=== PATIENT | male | born 1930 | race Caucasian/White ===

== ENCOUNTER 2019-06-03 15:31 | Emergency (ER) | payer OTHER, BC ==
[2019-06-03] MEDS ORDERED: NA CHLORIDE 0.9% 500 ML ONE (17:02)
[2019-06-03] MEDS ORDERED: MEPERIDINE HCL 25 MG/0.5 ML ONE (17:02)
[2019-06-03 17:06] LABS: Absolute Lymphocytes (CBC) 1.2 K/uL (0.7-4.9); Basophils % 0.8 % (0-1.3); Hematocrit 38.2 % (39.6-49.0); Lymphocytes % 12.4 % (15.3-44.8)
[2019-06-03 17:32] LABS: Albumin 3.6 g/dL (3.4-5.0); Bilirubin Direct 0.1 mg/dL (0-0.2); Bilirubin Total 0.3 mg/dL (0.2-1.0); Potassium 4.3 mmol/L (3.5-5.1); Protein, Total 7.8 g/dL (6.4-8.2)
--- NOTE | 2019-06-03 18:37 | RAD REPORT ---
EXAM DESCRIPTION: CT - Abdomen Pelvis W Contrast - 06/03/2019 6:18 pm CLINICAL HISTORY: Abdominal pain . COMPARISON: none. TECHNIQUE: Computed axial tomography of the abdomen pelvis was obtained. 100 cc Isovue-300 was admin istered intravenously. Oral contrast was not requested which limits evaluation of bowel. All CT scans are performed using dose optimization technique as appropriate and may include automated exposure control or mA/KV adjustment according to patient size. FINDINGS: The liver, spleen, pancreas, adrenal appear unremarkable. Small renal cysts There is no evidence of diverticulitis. The wall of the rectum appears mildly thickened Gallstones. Gallbladder wall is not thickened IMPRESSION: Apparent mild thickening of the wall of the rectum may be secondary to incomplete disten tion or pathology such as inflammation or mass Cholelithiasis without evidence cholecystitis
[2019-06-03] MEDS ORDERED: ONDANSETRON 4 MG/2 ML VIAL ONE (19:43)
[2019-06-03] MEDS ORDERED: MORPHINE 4 MG/ML SYR ONE (19:43)
--- NOTE | 2019-06-03 19:53 | RAD REPORT ---
EXAM DESCRIPTION: US - Abdomen Exam Limited - 06/03/2019 7:17 pm CLINICAL HISTORY: Abdominal pain. COMPARISON: None. FINDINGS: The gallbladder wall is not thickened. Multiple small gallstones The biliary tree is normal caliber. IMPRESSION: Cholelithiasis without evidence of cholecystitis
--- NOTE | 2019-06-03 20:31 | EDPHYS ---
Physician Documentation [facility] Name: Ciaran Pickard Age: 88 yrs Sex: Male : 1930 Arrival Date: 06/03/2019 Time: 15:34 Bed 13 Private MD: Claudia Angel ED Physician Ignacio Moran HPI: 06/03 18:49 This 88 yrs old Male presents to ER via Ambulatory with complaints of rn Abdominal Swelling, Abdominal Pain, High Blood Pressure. 18:49 The patient presents with abdominal pain in the upper abdomen. Onset: The rn symptoms/episode began/occurred this morning. The symptoms do not radiate. Associated signs and symptoms: none. Pertinent negatives: nausea and vomiting, anorexia, blood in stools, chest pain, constipation, diarrhea, dysuria, fever, headache, hematuria, nausea, palpitations, shortness of breath, vomiting, vomiting blood. Modifying factors: The symptoms are alleviated by nothing, the symptoms are aggravated by touching the area. Severity of pain: At its worst the pain was moderate in the emergency department the pain has improved. The patient has not experienced similar symptoms in the past. The patient has not recently seen a physician. Historical: - Allergies: 15:54 PENICILLINS; la1 - Home Meds: 15:54 Xarelto 20 mg oral tab 1 tab once daily [Active]; Multaq 400 mg oral tab 1 tab 2 times la1 per day [Active]; ramipril 5 mg Oral cap 1 cap 2 times per day [Active]; - PMHx: 15:54 Hypertension; Atrial Fib; la1 - Immunization history:: Adult Immunizations up to date. - Social history:: Smoking status: Patient/guardian denies using tobacco. - Ebola Screening: : No symptoms or risks identified at this time. - Family history:: not pertinent. - Hospitalizations: : No recent hospitalization is reported. ROS: 18:49 Constitutional: Negative for fever, chills, and weight loss, Eyes: Negative for injury, rn pain, redness, and discharge, ENT: Negative for injury, pain, and discharge, Cardiovascular: Negative for chest pain, palpitations, and edema, Respiratory: Negative for shortness of breath, cough, wheezing, and pleuritic chest pain, Abdomen/GI: + upper abd pain, negative for nausea/vomiting/diarrhea/constipation/blood in stool MS/Extremity: Negative for injury and deformity, Skin: Negative for injury, rash, and discoloration, Neuro: Negative for headache, weakness, numbness, tingling, and seizure. Exam: 18:49 Constitutional: This is a well developed, well nourished patient who is awake, alert, rn and in no acute distress. Head/Face: Normocephalic, atraumatic. ENT: MMM Cardiovascular: Regular rate and rhythm. No pulse deficits. Respiratory: No increased work of breathing, no retractions or nasal flaring. Abdomen/GI: soft, mild upper abd tenderness, no rebound, neg miller Skin: Warm, dry with normal turgor. Normal color with no rashes, no lesions, and no evidence of cellulitis. MS/ Extremity: Pulses equal, no cyanosis. Neurovascular intact. Full, normal range of motion. Equal circumference. Neuro: Awake and alert, GCS 15, oriented to person, place, time, and situation. Cranial nerves II-XII grossly intact. Motor strength 5/5 in all extremities. Sensory grossly intact. Vital Signs: 15:54 BP 204 / 91; Pulse 68; Resp 16; Temp 97.1; Pulse Ox 98% on R/A; Weight 95.25 kg; Height la1 6 ft. 0 in. (182.88 cm); 16:30 BP 203 / 88; Pulse 65; Resp 16 S; Pulse Ox 100% on R/A; Pain 9/10; ph 17:12 BP 190 / 83; Pulse 60; Resp 16; Pulse Ox 94% ; Pain 1/10; ph 18:01 BP 178 / 91; Pulse 55; Resp 16 S; Pulse Ox 97% on R/A; Pain 1/10; jl7 19:45 BP 200 / 90; Pulse 58; Resp 19; Temp 97.5; Pulse Ox 99% ; Pain 8/10; rr5 20:30 BP 195 / 80; Pulse 52; Resp 17; Pulse Ox 98% on R/A; Pain 5/10; rr5 21:45 BP 175 / 85; Pulse 56; Resp 17; Temp 97.2; Pulse Ox 99% ; Pain 2/10; rr5 15:54 Body Mass Index 28.48 (95.25 kg, 182.88 cm) la MDM: 15:58 Patient medically screened. rn 20:29 Data reviewed: vital signs. Data interpreted: Pulse oximetry: on room air is 99 %. pm1 Interpretation: normal. Counseling: I had a detailed discussion with the patient and/or guardian regarding: the historical points, exam findings, and any diagnostic results supporting the discharge/admit diagnosis, lab results, radiology results, the need for outpatient follow up, for definitive care, a general surgeon, to return to the emergency department if symptoms worsen or persist or if there are any questions or concerns that arise at home. 20:42 Physician consultation: Marc Olivo MD regarding patient's condition, outpatient pm1 follow-up, in 2-3 days. 06/03 16:05 Order name: Basic Metabolic Panel; Complete Time: 17:43 rn 06/03 16:05 Order name: CBC with Diff; Complete Time: 17:43 rn 06/03 16:05 Order name: Creatinine for Radiology; Complete Time: 17:43 rn 06/03 16:05 Order name: Hepatic Function; Complete Time: 17:43 rn 06/03 16:05 Order name: Lipase; Complete Time: 17:43 rn 06/03 16:05 Order name: IV Saline Lock; Complete Time: 16:56 rn 06/03 16:05 Order name: Labs collected and sent; Complete Time: 16:56 rn 06/03 16:16 Order name: Abdomen ; Complete Time: 20:15 EDMS 06/03 18:36 Order name: US Abdomen Limited; Complete Time: 20:33 rn Administered Medications: 17:00 Drug: NS 0.9% 500 ml Route: IV; Rate: bolus; Site: left antecubital; ph 17:30 Follow up: IV Status: Completed infusion; IV Intake: 500ml jl7 17:05 Drug: Demerol 25 mg Route: IVP; Site: left antecubital; ph 17:30 Follow up: Response: No adverse reaction; Marked relief of symptoms; Pain is decreased jl7 19:52 Drug: morphine 4 mg {Note: rass 0.} Route: IVP; Site: left antecubital; rr5 20:50 Follow up: Response: No adverse reaction; RASS: Alert and Calm (0) rr5 06/04 02:52 Not Given (Patient Refused): Zofran 4 mg IVP once; over 2 minutes rr5 Disposition: 06/03/19 20:30 Discharged to Home. Impression: Cholelithiasis. - Condition is Stable. - Discharge Instructions: Cholelithiasis. - Prescriptions for Bentyl 20 mg Oral Tablet - take 1 tablet by ORAL route every 6 hours As needed; 20 tablet. Zofran 4 mg Oral Tablet - take 1 tablet by ORAL route every 12 hours As needed; 20 tablet. Tramadol 50 mg Oral Tablet - take 1 tablet by ORAL route every 8 hours as needed; 12 tablet. - Medication Reconciliation Form, Thank You Letter, Antibiotic Education, Prescription Opioid Use form. - Follow up: Emergency Department; When: As needed; Reason: Worsening of condition. Follow up: Private Physician; When: 2 - 3 days; Reason: Recheck today's complaints, Continuance of care, Re-evaluation by your physician. Follow up: Marc Olivo MD; When: 2 - 3 days; Reason: Recheck today's complaints, Continuance of care, Re-evaluation by your physician. - Problem is new. - Symptoms have improved. Addendum: 06/06/2019 07:02 Co-signature as Attending Physician, Ignacio Moran MD. r n Signatures: Dispatcher [employer] [facility] Ignacio Moran MD MD rn Attema, Lee, RN RN la1 Bety Noel RN RN Shashi Ye, BETITO BLENDER LABORER pm1 Galindo Zapata RN RN rr5 Gypsy Borrego RN jl7 Corrections: (The following items were deleted from the chart) 06/03 16:16 16:06 Abdomen W/ Con+CT.RAD.BRZ ordered. [facility] 21:47 20:30 06/03/2019 20:30 Discharged to Home. Impression: Cholelithiasis. Condition is rr5 Stable. Forms are Medication Reconciliation Form, Thank You Letter, Antibiotic Education, Prescription Opioid Use. Follow up: Emergency Department; When: As needed; Reason: Worsening of condition. Follow up: Private Physician; When: 2 - 3 days; Reason: Recheck today's complaints, Continuance of care, Re-evaluation by your physician. Follow up: Marc Olivo; When: 2 - 3 days; Reason: Recheck today's complaints, Continuance of care, Re-evaluation by your physician. Problem is new. Symptoms have improved. pm1
--- NOTE | 2019-06-03 20:31 | ER ---
Nurse's Notes [facility] Name: Ciaran Pickard Age: 88 yrs Sex: Male : 1930 Arrival Date: 06/03/2019 Time: 15:34 Bed 13 Private MD: Claudia Angel Diagnosis: Cholelithiasis Presentation: 06/03 15:51 Presenting complaint: Patient states: I have been having abd pain since this morning la1 and my BP just keeps getting higher and higher. Transition of care: patient was not received from another setting of care. Onset of symptoms was June 03, 2019. Risk Assessment: Do you want to hurt yourself or someone else? Patient reports no desire to harm self or others. Initial Sepsis Screen: Does the patient meet any 2 criteria? No. Patient's initial sepsis screen is negative. Does the patient have a suspected source of infection? No. Patient's initial sepsis screen is negative. Care prior to arrival: None. 15:51 Method Of Arrival: Ambulatory la1 15:51 Acuity: MARY 2 la1 Historical: - Allergies: 15:54 PENICILLINS; la1 - Home Meds: 15:54 Xarelto 20 mg oral tab 1 tab once daily [Active]; Multaq 400 mg oral tab 1 tab 2 times la1 per day [Active]; ramipril 5 mg Oral cap 1 cap 2 times per day [Active]; - PMHx: 15:54 Hypertension; Atrial Fib; la1 - Immunization history:: Adult Immunizations up to date. - Social history:: Smoking status: Patient/guardian denies using tobacco. - Ebola Screening: : No symptoms or risks identified at this time. - Family history:: not pertinent. - Hospitalizations: : No recent hospitalization is reported. Screenin:12 Abuse screen: Denies threats or abuse. Denies injuries from another. Nutritional ph screening: No deficits noted. Tuberculosis screening: No symptoms or risk factors identified. Fall Risk IV access (20 points). Total Tucker Fall Scale indicates No Risk (0-24 pts). Assessment: 16:30 General: Appears in no apparent distress. uncomfortable, Behavior is calm, cooperative, ph appropriate for age. Pain: Complains of pain in abdomen diffusely Pain currently is 9 out of 10 on a pain scale. Quality of pain is described as pressure, Pain began This morning Is continuous. Neuro: Level of Consciousness is awake, alert, obeys commands, Oriented to person, place, time, situation. Cardiovascular: Patient's skin is warm and dry. Respiratory: Airway is patent Respiratory effort is even, unlabored, Respiratory pattern is regular, symmetrical. GI: Abdomen is round non-distended, Bowel sounds present X 4 quads. Abd is soft and non tender X 4 quads. Derm: Skin is pink, warm \\T\\ dry. Musculoskeletal: No signs and/or symptoms reported regarding the musculoskeletal system. 18:02 Reassessment: Pt requesting to take his nightly home medications, ERD notified and jl7 orders he can take his Multaq 400 but hold the Xarelto until results are back. 19:45 Reassessment: complaining of abdominal pain pain score 8/10. ED provider informed with rr5 order made and carried out. 19:52 Reassessment: patient refused for zofran medication. "I am not feeling nauseated for rr5 now." as verbalized by the patient. 20:30 Reassessment: Patient appears in no apparent distress at this time. Patient is alert, rr5 oriented x 3, equal unlabored respirations, skin warm/dry/pink. chatting with his flatwork presser at bedside. Patient states symptoms have improved. 21:06 Reassessment: for discharge ED provider informed dr. baugh for the follow up, rr5 patient and relatives aware. 21:35 Reassessment: Patient appears in no apparent distress at this time. Patient is alert, rr5 oriented x 3, equal unlabored respirations, skin warm/dry/pink. discharge instruction given and explained to flatwork presser without complaints made. Vital Signs: 15:54 BP 204 / 91; Pulse 68; Resp 16; Temp 97.1; Pulse Ox 98% on R/A; Weight 95.25 kg; Height la1 6 ft. 0 in. (182.88 cm); 16:30 BP 203 / 88; Pulse 65; Resp 16 S; Pulse Ox 100% on R/A; Pain 9/10; ph 17:12 BP 190 / 83; Pulse 60; Resp 16; Pulse Ox 94% ; Pain 1/10; ph 18:01 BP 178 / 91; Pulse 55; Resp 16 S; Pulse Ox 97% on R/A; Pain 1/10; jl7 19:45 BP 200 / 90; Pulse 58; Resp 19; Temp 97.5; Pulse Ox 99% ; Pain 8/10; rr5 20:30 BP 195 / 80; Pulse 52; Resp 17; Pulse Ox 98% on R/A; Pain 5/10; rr5 21:45 BP 175 / 85; Pulse 56; Resp 17; Temp 97.2; Pulse Ox 99% ; Pain 2/10; rr5 15:54 Body Mass Index 28.48 (95.25 kg, 182.88 cm) la1 ED Course: 15:34 Patient arrived in ED. mr 15:35 Claudia Angel MD is Private Physician. mr 15:51 Arm band placed on left wrist. la1 15:52 Triage completed. la1 15:55 Bety Noel RN is Primary Nurse. ph 15:58 Ignacio Moran MD is Attending Physician. rn 17:00 Initial lab(s) drawn, by nc, sent to lab. Inserted saline lock: 22 gauge in left ph antecubital area, using aseptic technique. Blood collected. 17:12 Patient has correct armband on for positive identification. Placed in gown. Bed in low ph position. Call light in reach. Side rails up X 1. sand blaster on. Pulse ox on. NIBP on. Warm blanket given. 17:39 Primary Nurse role handed off by Bety Noel RN jl7 17:39 Gypsy Borrego RN is Primary Nurse. jl7 18:22 Abdomen In Process Unspecified. EDMS 18:46 Shashi Moreau NP is PHCP. pm1 19:32 US Abdomen Limited In Process Unspecified. EDMS 20:30 Marc Baugh MD is Referral Physician. pm1 21:45 No provider procedures requiring assistance completed. rr5 21:45 Patient did not have IV access during this emergency room visit. rr5 Administered Medications: 17:00 Drug: NS 0.9% 500 ml Route: IV; Rate: bolus; Site: left antecubital; ph 17:30 Follow up: IV Status: Completed infusion; IV Intake: 500ml jl7 17:05 Drug: Demerol 25 mg Route: IVP; Site: left antecubital; ph 17:30 Follow up: Response: No adverse reaction; Marked relief of symptoms; Pain is decreased jl7 19:52 Drug: morphine 4 mg {Note: rass 0.} Route: IVP; Site: left antecubital; rr5 20:50 Follow up: Response: No adverse reaction; RASS: Alert and Calm (0) rr5 06/04 02:52 Not Given (Patient Refused): Zofran 4 mg IVP once; over 2 minutes rr5 Intake: 06/03 17:30 IV: 500ml; Total: 500ml. jl7 Outcome: 20:30 Discharge ordered by . pm1 21:45 Discharged to home ambulatory, with family. rr5 21:45 Condition: stable 21:45 Discharge instructions given to patient, family, Instructed on discharge instructions, follow up and referral plans. medication usage, Demonstrated understanding of instructions, follow-up care, medications, Prescriptions given X 3. 21:47 Patient left the ED. rr5 Signatures: Dispatcher [employer] Clary Jimenez LuisaIgnacio MD MD rn Attema, Lee, RN RN la1 Bety Noel RN RN ph Marinas, Patrick, BETITO FIXED INCOME DIRECTOR pm1 Gypsy Borrego RN RN jl7 Galindo Zapata RN RN rr5 Corrections: (The following items were deleted from the chart) 06/04 02:39 06/03 21:06 Reassessment: for discharge awaiting for dr. baugh to speak to them in rr5 room. rr5
[2019-06-03 22:06] VITALS: BP 200/90; TEMP 97.5; O2SAT 99
== END 2019-06-03 21:47 | disposition home or self-care (01) ==
LOC: ER 15:31
DX: K80.20 Calculus of gallbladder without cholecystitis without obstruction (principal); I10 Essential (primary) hypertension; I48.91 Unspecified atrial fibrillation; Z79.01 Long term (current) use of anticoagulants; Z88.0 Allergy status to penicillin
CPT/HCPCS: 85025; 80048; 36415; 80076; 83690; 74177; 76705; Q9967; J2175; 96374; 96375; 99284; J2405

== ENCOUNTER 2019-06-05 01:46 | Inpatient (IN) | payer OTHER, BC ==
--- NOTE | 2019-06-05 03:00 | EDPHYS ---
Physician Documentation [facility] Name: Ciaran Pickard Age: 88 yrs Sex: Male : 1930 Arrival Date: 06/05/2019 Time: 01:51 Bed 15 Private MD: ED Physician Mahamed Andrade HPI: 06/05 02:53 This 88 yrs old Male presents to ER via EMS with complaints of abdominal melissa pain, pleursy and known cholelithiasis. 02:53 The patient has shortness of breath at rest. Onset: The symptoms/episode began/occurred melissa 4 day(s) ago. Duration: The symptoms are continuous, and are steadily getting worse. The patient's shortness of breath has no apparent modifying factors. The patient or guardian reports chest pain that is located primarily in the anterior chest wall, diaphragm. Onset: 3 day(s) ago. The patient presents with abdominal pain in the epigastric area, in the upper abdomen, abdominal distention in the epigastric area, in the upper abdomen. Onset: The symptoms/episode began/occurred 3 day(s) ago. The pain does not radiate. Associated signs and symptoms: Pertinent positives: chest pain. Severity of symptoms: At their worst the symptoms were mild moderate in the emergency department the symptoms are unchanged. Historical: - Allergies: 01:45 PENICILLINS; jb4 - Home Meds: 01:45 Multaq 400 mg Oral tab 1 tab 2 times per day [Active]; ramipril 5 mg Oral cap 1 cap 2 jb4 times per day [Active]; Xarelto 20 mg Oral tab 1 tab once daily [Active]; 01:45 Bentyl Oral [Active]; Tramadol Oral [Active]; jb4 - PMHx: 01:45 Atrial Fib; Hypertension; jb4 - Immunization history:: Adult Immunizations up to date. - Social history:: Smoking status: Patient/guardian denies using tobacco. - Ebola Screening: : No symptoms or risks identified at this time. - Family history:: not pertinent. ROS: 02:53 Constitutional: Negative for fever, chills, and weight loss, Eyes: Negative for injury, melissa pain, redness, and discharge, ENT: Negative for injury, pain, and discharge, Neck: Negative for injury, pain, and swelling, Cardiovascular: Negative for chest pain, palpitations, and edema, Back: Negative for injury and pain, : Negative for injury, bleeding, discharge, and swelling, MS/Extremity: Negative for injury and deformity, Skin: Negative for injury, rash, and discoloration, Neuro: Negative for headache, weakness, numbness, tingling, and seizure, Psych: Negative for depression, anxiety, suicide ideation, homicidal ideation, and hallucinations, Allergy/Immunology: Negative for hives, rash, and allergies, Endocrine: Negative for neck swelling, polydipsia, polyuria, polyphagia, and marked weight changes, Hematologic/Lymphatic: Negative for swollen nodes, abnormal bleeding, and unusual bruising. 02:53 Respiratory: Positive for cough. 02:53 Abdomen/GI: Positive for abdominal pain, abdominal cramps, abdominal distension, of the epigastric area, right upper quadrant and left upper quadrant. Exam: 02:53 Constitutional: This is a well developed, well nourished patient who is awake, alert, melissa and in no acute distress. Head/Face: Normocephalic, atraumatic. Eyes: Pupils equal round and reactive to light, extra-ocular motions intact. Lids and lashes normal. Conjunctiva and sclera are non-icteric and not injected. Cornea within normal limits. Periorbital areas with no swelling, redness, or edema. ENT: Nares patent. No nasal discharge, no septal abnormalities noted. Tympanic membranes are normal and external auditory canals are clear. Oropharynx with no redness, swelling, or masses, exudates, or evidence of obstruction, uvula midline. Mucous membranes moist. Neck: Trachea midline, no thyromegaly or masses palpated, and no cervical lymphadenopathy. Supple, full range of motion without nuchal rigidity, or vertebral point tenderness. No Meningismus. Chest/axilla: Normal chest wall appearance and motion. Nontender with no deformity. No lesions are appreciated. Cardiovascular: Regular rate and rhythm with a normal S1 and S2. No gallops, murmurs, or rubs. Normal PMI, no JVD. No pulse deficits. Respiratory: Lungs have equal breath sounds bilaterally, clear to auscultation and percussion. No rales, rhonchi or wheezes noted. No increased work of breathing, no retractions or nasal flaring. Back: No spinal tenderness. No costovertebral tenderness. Full range of motion. Male : Normal genitalia with no discharge or lesions. Skin: Warm, dry with normal turgor. Normal color with no rashes, no lesions, and no evidence of cellulitis. MS/ Extremity: Pulses equal, no cyanosis. Neurovascular intact. Full, normal range of motion. Neuro: Awake and alert, GCS 15, oriented to person, place, time, and situation. Cranial nerves II-XII grossly intact. Motor strength 5/5 in all extremities. Sensory grossly intact. Cerebellar exam normal. Normal gait. Psych: Awake, alert, with orientation to person, place and time. Behavior, mood, and affect are within normal limits. 02:53 Abdomen/GI: Inspection: abdomen appears normal, Bowel sounds: normal, Palpation: mild abdominal tenderness, moderate abdominal tenderness, in the epigastric area, right upper quadrant and left upper quadrant, Liver: no appreciated palpable abnormalities, Hernia: not appreciated. Vital Signs: 01:45 BP 127 / 70; Pulse 70; Resp 16; Temp 99.8(O); Pulse Ox 93% on R/A; Weight 95.25 kg (R); jb4 Height 5 ft. 11 in. (180.34 cm) (R); Pain 10/10; 03:00 BP 120 / 56; Pulse 65; Resp 16; Pulse Ox 93% on R/A; jb4 04:07 BP 125 / 68; Pulse 67; Resp 16; Pulse Ox 93% on R/A; jb4 04:30 BP 115 / 54; Pulse 67; Resp 16; Pulse Ox 93% on R/A; jb4 06:22 BP 102 / 68; Pulse 76; Resp 18 S; Pulse Ox 94% on R/A; Pain 0/10; jd3 01:45 Body Mass Index 29.29 (95.25 kg, 180.34 cm) jb4 MDM: 02:10 Patient medically screened. [facility] 02:57 Data reviewed: vital signs, nurses notes, lab test result(s), EKG, radiologic studies, [facility] CT scan, plain films. 06/05 02:52 Order name: Basic Metabolic Panel; Complete Time: 06:13 [facility] 06/05 02:52 Order name: CBC with Diff; Complete Time: 06:13 [facility] 06/05 02:52 Order name: LFT's; Complete Time: 06:13 [facility] 06/05 02:52 Order name: Magnesium; Complete Time: 06:13 [facility] 06/05 02:52 Order name: NT PRO-BNP; Complete Time: 06:13 [facility] 06/05 02:52 Order name: PT-INR; Complete Time: 04:23 [facility] 06/05 02:52 Order name: Troponin (emerg Dept Use Only); Complete Time: 06:13 [facility] 06/05 02:52 Order name: XRAY Chest (1 view) [facility] 06/05 02:52 Order name: Lipase; Complete Time: 06:13 [facility] 06/05 03:51 Order name: CBC with Automated Diff [facility] 06/05 03:51 Order name: CBC with Automated Diff [facility] 06/05 03:51 Order name: Comprehensive Metabolic Panel [facility] 06/05 03:51 Order name: Comprehensive Metabolic Panel [facility] 06/05 04:21 Order name: Manual Differential; Complete Time: 06:13 [facility] 06/05 02:52 Order name: EKG; Complete Time: 02:54 [facility] 06/05 02:52 Order name: Cardiac monitoring; Complete Time: 03:51 [facility] 06/05 02:52 Order name: EKG - Nurse/Tech; Complete Time: 03:26 [facility] 06/05 02:52 Order name: IV Saline Lock; Complete Time: 03:51 [facility] 06/05 02:52 Order name: Labs collected and sent; Complete Time: 03:51 [facility] 06/05 02:52 Order name: O2 Per Protocol; Complete Time: 03:51 [facility] 06/05 02:52 Order name: CT Aorta for Dissection [facility] 06/05 03:50 Order name: CONS Pharmacy Consult [facility] 06/05 03:51 Order name: CONS Physician Consult [facility] 06/05 03:51 Order name: NPO [facility] 06/05 02:52 Order name: O2 Sat Monitoring; Complete Time: 03:51 [facility] Administered Medications: 04:12 Drug: Zofran 4 mg Route: IVP; Site: right antecubital; jb4 05:12 Follow up: Response: No adverse reaction jd3 04:14 Drug: ProTONIX 40 mg Route: IVP; Site: right antecubital; jb4 05:15 Follow up: Response: No adverse reaction jd3 04:15 Drug: morphine 2 mg {Note: Rass score 0.} Route: IVP; Site: right antecubital; jb4 05:15 Follow up: Response: No adverse reaction; RASS: Alert and Calm (0) jd3 04:17 Drug: Rocephin 1 grams Route: IV; Rate: per protocol; Site: right antecubital; jb4 04:20 Follow up: Response: No adverse reaction; IV Status: Completed infusion; IV Intake: [id number] 04:20 Drug: Flagyl 500 mg Volume: 100 ml; Route: IVPB; Rate: 200 ml/hr; Infused Over: 30 jb4 mins; Site: right antecubital; 06:04 Follow up: Response: No adverse reaction; IV Status: Completed infusion jd3 06:14 Drug: Rocephin - (cefTRIAXone) 1 grams Route: IVPB; Infused Over: 30 mins; Site: right jd3 antecubital; 06:17 Follow up: Response: No adverse reaction; IV Status: Completed infusion jd3 Disposition: 06/05/19 02:59 Hospitalization ordered by Reece Velazquez for Inpatient Admission. Preliminary diagnosis are Abdominal tenderness, Cholelithiasis, Atrial fibrillation and flutter, Left sided colitis, Anemia, unspecified, Elevated white blood cell count, Cholecystitis. - Bed requested for Telemetry/MedSurg (Inpatient). - Status is Inpatient Admission. jd3 - Condition is Fair. - Problem is new. - Symptoms have improved. UTI on Admission? No Signatures: Dispatcher [employer] EDMahamed Steven MD MD cha Page, Corey, PA PA cp Bryson, James, RN RN jb4 Nguyen, [facility] Hari Singh RN RN jd3 Corrections: (The following items were deleted from the chart) 04:22 02:59 Hospitalization Ordered by Reece Velazquez MD for Inpatient Admission. Preliminary nv diagnosis is Abdominal tenderness; Cholelithiasis; Atrial fibrillation and flutter; Left sided colitis. Bed requested for Telemetry/MedSurg (Inpatient). Status is Inpatient Admission. Condition is Fair. Problem is new. Symptoms have improved. UTI on Admission? No. [facility] 04:23 04:22 06/05/2019 02:59 Hospitalization Ordered by Reece Velazquez MD for Inpatient melissa Admission. Preliminary diagnosis is Abdominal tenderness; Cholelithiasis; Atrial fibrillation and flutter; Left sided colitis. Bed requested for Telemetry/MedSurg (Inpatient). Status is Inpatient Admission. Condition is Fair. Problem is new. Symptoms have improved. UTI on Admission? No. mt 05:58 04:23 06/05/2019 02:59 Hospitalization Ordered by Reece Velazquez MD for Inpatient melissa Admission. Preliminary diagnosis is Abdominal tenderness; Cholelithiasis; Atrial fibrillation and flutter; Left sided colitis; Anemia, unspecified; Elevated white blood cell count. Bed requested for Telemetry/MedSurg (Inpatient). Status is Inpatient Admission. Condition is Fair. Problem is new. Symptoms have improved. UTI on Admission? No. melissa 06:34 05:58 06/05/2019 02:59 Hospitalization Ordered by Reece Velazquez MD for Inpatient jd3 Admission. Preliminary diagnosis is Abdominal tenderness; Cholelithiasis; Atrial fibrillation and flutter; Left sided colitis; Anemia, unspecified; Elevated white blood cell count; Cholecystitis. Bed requested for Telemetry/MedSurg (Inpatient). Status is Inpatient Admission. Condition is Fair. Problem is new. Symptoms have improved. UTI on Admission? No. melissa
--- NOTE | 2019-06-05 03:00 | ER ---
Nurse's Notes [facility] Name: Ciaran Pickard Age: 88 yrs Sex: Male : 1930 Arrival Date: 06/05/2019 Time: 01:51 Bed 15 Private MD: Diagnosis: Abdominal tenderness;Cholelithiasis;Atrial fibrillation and flutter;Left sided colitis;Anemia, unspecified;Elevated white blood cell count;Cholecystitis Presentation: 06/05 01:45 Presenting complaint: EMS states: Pt was here yesterday and was diagnosed with jb4 cholelithiasis. Reports having increased abdominal pain and bloating, has not had a bowel movement and is having trouble urinating. 01:45 Transition of care: patient was not received from another setting of care. Onset of jb4 symptoms was June 05, 2019. Risk Assessment: Do you want to hurt yourself or someone else? Patient reports no desire to harm self or others. Initial Sepsis Screen: Does the patient meet any 2 criteria? No. Patient's initial sepsis screen is negative. Does the patient have a suspected source of infection? No. Patient's initial sepsis screen is negative. Care prior to arrival: None. 01:45 Method Of Arrival: EMS: [facility] jb4 01:45 Acuity: MARY 3 jb4 Historical: - Allergies: 01:45 PENICILLINS; jb4 - Home Meds: 01:45 Multaq 400 mg Oral tab 1 tab 2 times per day [Active]; ramipril 5 mg Oral cap 1 cap 2 jb4 times per day [Active]; Xarelto 20 mg Oral tab 1 tab once daily [Active]; 01:45 Bentyl Oral [Active]; Tramadol Oral [Active]; jb4 - PMHx: 01:45 Atrial Fib; Hypertension; jb4 - Immunization history:: Adult Immunizations up to date. - Social history:: Smoking status: Patient/guardian denies using tobacco. - Ebola Screening: : No symptoms or risks identified at this time. - Family history:: not pertinent. Screenin:45 Abuse screen: Denies threats or abuse. Nutritional screening: No deficits noted. jb4 Tuberculosis screening: No symptoms or risk factors identified. Fall Risk None identified. Assessment: 01:45 General: Appears in no apparent distress. uncomfortable, Behavior is calm, cooperative, jb4 appropriate for age. Pain: Complains of pain in abdomen Pain does not radiate. Pain currently is 10 out of 10 on a pain scale. Quality of pain is described as stabbing, Pain began 1 day ago. Neuro: Level of Consciousness is awake, alert, obeys commands, Oriented to person, place, time, situation. Cardiovascular: Patient's skin is warm and dry. Respiratory: Airway is patent Respiratory effort is even, unlabored, Respiratory pattern is regular, symmetrical. GI: Abdomen is round distended, Bowel sounds present X 4 quads. Abd is soft and non tender X 4 quads. Reports lower abdominal pain, upper abdominal pain, constipation, nausea. : No deficits noted. No signs and/or symptoms were reported regarding the genitourinary system. EENT: No deficits noted. No signs and/or symptoms were reported regarding the EENT system. Derm: Skin is intact, Skin is pink, warm \T\ dry. Musculoskeletal: Circulation, motion, and sensation intact. Range of motion: intact in all extremities. 03:00 Reassessment: Patient appears in no apparent distress at this time. Patient and/or jb4 family updated on plan of care and expected duration. Pain level reassessed. Patient is alert, oriented x 3, equal unlabored respirations, skin warm/dry/pink. 04:00 Reassessment: Patient appears in no apparent distress at this time. Patient and/or jb4 family updated on plan of care and expected duration. Pain level reassessed. Patient is alert, oriented x 3, equal unlabored respirations, skin warm/dry/pink. 06:24 Reassessment: Patient appears in no apparent distress at this time. Patient and/or jd3 family updated on plan of care and expected duration. Pain level reassessed. Patient is alert, oriented x 3, equal unlabored respirations, skin warm/dry/pink. report given to Toni JONES. Patient states feeling better. Vital Signs: 01:45 BP 127 / 70; Pulse 70; Resp 16; Temp 99.8(O); Pulse Ox 93% on R/A; Weight 95.25 kg (R); jb4 Height 5 ft. 11 in. (180.34 cm) (R); Pain 10/10; 03:00 BP 120 / 56; Pulse 65; Resp 16; Pulse Ox 93% on R/A; jb4 04:07 BP 125 / 68; Pulse 67; Resp 16; Pulse Ox 93% on R/A; jb4 04:30 BP 115 / 54; Pulse 67; Resp 16; Pulse Ox 93% on R/A; jb4 06:22 BP 102 / 68; Pulse 76; Resp 18 S; Pulse Ox 94% on R/A; Pain 0/10; jd3 01:45 Body Mass Index 29.29 (95.25 kg, 180.34 cm) jb4 ED Course: 01:45 Arm band placed on right wrist. jb4 01:45 Patient has correct armband on for positive identification. Placed in gown. Bed in low jb4 position. Call light in reach. Side rails up X 1. groundwater monitoring technician on. Pulse ox on. NIBP on. 01:51 Patient arrived in ED. jb4 01:53 Triage completed. jb4 02:10 Mahamed Andrade MD is Attending Physician. melissa 02:57 Reece Velazquez MD is Hospitalizing Provider. melissa 03:11 X-ray completed. Portable x-ray completed in exam room. Patient tolerated procedure kw well. 03:13 XRAY Chest (1 view) In Process Unspecified. EDMS 03:27 EKG done, by ED staff, reviewed by Mahamed Andrade MD. em1 03:43 Marc Perez, RN is Primary Nurse. jb4 03:46 Radiology exam delayed due to IV insertion attempt and/or patient not having kw1 appropriate IV at this time. 06:24 No provider procedures requiring assistance completed. Patient admitted, IV remains in jd3 place. Administered Medications: 04:12 Drug: Zofran 4 mg Route: IVP; Site: right antecubital; jb4 05:12 Follow up: Response: No adverse reaction jd3 04:14 Drug: ProTONIX 40 mg Route: IVP; Site: right antecubital; jb4 05:15 Follow up: Response: No adverse reaction jd3 04:15 Drug: morphine 2 mg {Note: Rass score 0.} Route: IVP; Site: right antecubital; jb4 05:15 Follow up: Response: No adverse reaction; RASS: Alert and Calm (0) jd3 04:17 Drug: Rocephin 1 grams Route: IV; Rate: per protocol; Site: right antecubital; jb4 04:20 Follow up: Response: No adverse reaction; IV Status: Completed infusion; IV Intake: [id number] 04:20 Drug: Flagyl 500 mg Volume: 100 ml; Route: IVPB; Rate: 200 ml/hr; Infused Over: 30 jb4 mins; Site: right antecubital; 06:04 Follow up: Response: No adverse reaction; IV Status: Completed infusion jd3 06:14 Drug: Rocephin - (cefTRIAXone) 1 grams Route: IVPB; Infused Over: 30 mins; Site: right jd3 antecubital; 06:17 Follow up: Response: No adverse reaction; IV Status: Completed infusion jd3 Intake: 04:20 IV: 10ml; Total: 10ml. jb4 Outcome: 02:59 Decision to Hospitalize by Provider. melissa 06:25 Admitted to Med/surg accompanied by nurse, via wheelchair, room 413, with chart, Report jd3 called to Toni JONES 06:25 Condition: stable 06:25 Instructed on the need for admit, Demonstrated understanding of instructions. 06:34 Patient left the ED. jclint Signatures: Dispatcher [employer] EDMahamed Steven MD MD cha Martinez, Eric em1 Tameka Pino James RN RN jb4 Hari Singh RN RN Swetha Villarreal
[2019-06-05] MEDS ORDERED: MORPHINE 2 MG/ML SYR IV PRN (03:40)
[2019-06-05] MEDS ORDERED: ACETAMINOPHEN 500 MG TAB PO PRN (03:40)
[2019-06-05] MEDS: Levofloxacin500mg IV 500 MG/100 ML BAG IV SCH (04:00)
[2019-06-05] MEDS ORDERED: CEFTRIAXONE/SWI 1gm 1 GM/10 ML SYR ONE ×2 (04:04→06:07)
[2019-06-05] MEDS ORDERED: PANTOPRAZOLE 40 MG INJ ONE (04:04)
[2019-06-05 04:12] LABS: Basophils % 0.1 % (0-1.3); Hematocrit 35.3 % (39.6-49.0); Lymphocytes % 4.9 % (15.3-44.8); MPV 7.1 fL (7.6-11.3); RBC Red Blood Cell Count 3.72 M/uL (4.33-5.43)
[2019-06-05 04:13] LABS: Protime INR 3.74
[2019-06-05 04:39] LABS: Albumin 3.1 g/dL (3.4-5.0); Bilirubin Direct 0.3 mg/dL (0-0.2); Magnesium 2.1 mg/dL (1.8-2.4); Potassium 4.6 mmol/L (3.5-5.1); Protein, Total 7.3 g/dL (6.4-8.2); Troponin (Emerg Dept Use Only) 0.22 ng/mL (0.0-0.045)
[2019-06-05] MEDS ORDERED: Levofloxacin500mg IV 500 MG/100 ML BAG IV ONE (05:00)
[2019-06-05 05:31] LABS: Blood Morphology Comment NOT SEEN (NOT SEEN); Platelet Estimate ADEQ
[2019-06-05] MEDS: METRONIDAZOLE 500mg IVPB 500 MG/100 ML BAG IV SCH ×3 (06:00→18:47)
[2019-06-05 07:52] VITALS: BMI 27.0
--- NOTE | 2019-06-05 08:15 | RAD REPORT ---
EXAM DESCRIPTION: RAD - Chest Single View - 06/05/2019 3:12 am CLINICAL HISTORY: Cough;Abdominal distention Chest pain. COMPARISON: CHEST PA AND LAT 2 VIEW dated 09/09/2014; CHEST SINGLE VIEW dated 10/01/2010 FINDINGS: Portable technique limits examination quality. The lungs are underinflated with with subsegmental atelectasis in both lung bases. The heart is inge l in size. No displaced fractures.
--- NOTE | 2019-06-05 09:14 | P.HP ---
Certification for Inpatient Patient admitted to: Inpatient With expected LOS: >2 Midnights Patient will require the following post-hospital care: None Practitioner: I am a practitioner with admitting privileges, knowledge of patient current condition, hospital course, and medical plan of care. Services: Services provided to patient in accordance with Admission requirements found in Title 42 Section 412.3 of the Code of Federal Regulations Patient History Date of Service: 06/05/19 Reason for admission: Abdominal pain History of Present Illness: Patient is an 88-year-old gentleman who came into the hospital with abdominal discomfort. Pain was mainly in the epigastric area. Patient was in the ER the day before with similar complaints. Symptoms have not been improving. Patient' s brought back into the ER for further evaluation. Patient had a CT aortic dissection which revealed cholelithiasis/colitis. Patient will be admitted to the hospital for further evaluation. Patient may have a small- bowel obstruction. Will get surgery and GI consultation. Allergies Penicillins Allergy (Unverified 09/10/14 02:01) Unknown - Past Medical/Surgical History -: Atrial Fibrillation -: Hypertension Past Surgical History: Patient denies surgical history - Family History Father Family History: Reviewed- Non-Contributory - Social History Smoking Status: Never smoker Alcohol use: No CD- Drugs: No Review of Systems 10-point ROS is otherwise unremarkable Physical Examination - Vital Signs Temperature: 99 F Blood Pressure: 132/58 Pulse: 66 Respirations: 18 Pulse Ox (%): 87 - Physical Exam General: Alert, In no apparent distress, Oriented x2, Demented HEENT: Atraumatic, Normocephalic, PERRLA Neck: Supple, 2+ carotid pulse no bruit, JVD not distended Respiratory: Clear to auscultation bilaterally, Normal air movement Cardiovascular: Regular rate/rhythm, Normal S1 S2, Systolic murmur Gastrointestinal: Normal bowel sounds, Soft and benign, Distended, Tenderness Musculoskeletal: No clubbing, No swelling Neurological: Normal gait, Normal speech, Normal strength at 5/5 x4 extr, Normal tone, Sensation intact, Cranial nerves 3-12 intact - Studies Laboratory Data (last 24 hrs) 06/05/19 03:50: PT 42.0 H, INR 3.74 06/05/19 03:50: WBC 20.5 H* D, Hgb 12.7 L, Hct 35.3 L, Plt Count 301 06/05/19 03:50: Sodium 128 L, Potassium 4.6, BUN 24 H, Creatinine 1.39 H, Glucose 127 H, Magnesium 2.1, Total Bilirubin 1.0, AST 42 H, ALT 24, Alkaline Phosphatase 58, Lipase 40 L Assessment & Plan - Problems (Diagnosis) (1) Abdominal pain Current Visit: Yes Status: Acute (2) Cholecystitis Current Visit: Yes Status: Acute (3) Colitis Current Visit: Yes Status: Acute (4) History of atrial fibrillation Current Visit: Yes Status: Acute (5) History of hypertension Current Visit: Yes Status: Acute - Plan 1. Continue with IV hydration 2. Continue with IV antibiotics 3. Continue with pain control 4. NPO 5. GI & general surgery consultation; outpatient colonoscopy in 6-12 weeks 6. Serial H&H, and we will monitor CBC, BMP, LFTs and lipase along with electrolytes. 7. Patient may need clearance per Cardiology if surgery is needed; continue medication for AFib and hypertension-continue Multaq but place Xarelto on hold 8. GI and DVT prophylaxis - Advance Directives Does patient have a Living Will: No Does patient have a Durable POA for Healthcare: No
[2019-06-05] MEDS: NA CHLORIDE 0.9% 1,000 ML IV SCH ×2 (10:30→17:20)
--- NOTE | 2019-06-05 11:07 | EKG ---
Test Date: 2019-06-05 Test Time: 03:12:16 Candy [employer] Printer: TAWANDA MEASUREMENT RESULTS: Intervals: Rate: 67 SD: 186 QRSD: 80 QT: 422 QTc: 445 [place]: P: 45 SD: 186 QRS: 12 T: 36 INTERPRETIVE STATEMENTS: Sinus rhythm with premature supraventricular complexes Low voltage QRS Nonspecific ST abnormality Abnormal ECG Compared to ECG 10/11/2010 16:03:06 Atrial premature complex(es) now present Low QRS voltage now present ST (T wave) deviation now present Sinus bradycardia no longer present Sinus arrhythmia no longer present First degree AV block no longer present T-wave abnormality no longer present Electronically Signed On 06-05-19 11:06:03 CDT by Alexx Barrow
--- NOTE | 2019-06-05 11:11 | RAD REPORT ---
EXAM DESCRIPTION: US - Abdomen Exam Limited - 06/05/2019 11:02 am CLINICAL HISTORY: Abdominal pain. COMPARISON: June 03, 2019 ultrasound FINDINGS: Multiple gallstones. The gallbladder wall is thickened measuring 5 millimeters. Small amou nt of pericholecystic fluid. Common bile duct is not well seen but probably is within normal limits IMPRESSION: Cholelithiasis with cholecystitis
--- NOTE | 2019-06-05 14:14 | P.CNS ---
Date of Consult: 06/05/19 PC: This 88-year-old male presents the emergency room with severe abdominal pain for diagnosis and treatment. HPC: Patient had a similar episode this few days ago. Was seen in the emergency room. He was discharged but returned because his pain appeared to be unrelenting. Describes it as severe located in the upper portion of his abdomen. Hurts every time he tries to move. Still having pain today. PMH: Hypertension, diabetes. PSHx: Patient denies prior surgeries. SOC: Allergic to penicillin SYS REVIEW: No cough, wheeze, shortness of breath. No chest pain or palpitations. Denies any urinary complaints. He is a fairly active 88-year- old. O/E awake alert uncomfortable HEENT: Nonicteric Chest: Chest movement equal bilaterally ABD: Tender in the right upper quadrant positive Kahn's sign LOCO: Intact DATA: Elevated white cell count ultrasound shows cholecystitis with cholelithiasis a IMPRESSION: Acute cholecystitis with cholelithiasis PLAN: I will take her the operating room for laparoscopic cholecystectomy with cholangiogram. I feel this patient's pain is significant and is not really responding to conservative therapy. Awaiting any recommendations from Cardiology. Will keep NPO in the meantime.
[2019-06-05] MEDS ORDERED: ROCURONIUM 50 MG/5 ML VIAL IV ONE (15:49)
[2019-06-05] MEDS ORDERED: PROPOFOL 200 MG/20 ML VIAL IV ONE (15:49)
[2019-06-05] MEDS ORDERED: dexAMETHasone 10 MG/ML VIAL ONE (15:49)
[2019-06-05] MEDS ORDERED: FENTANYL CITR 100 MCG/2 ML ONE (15:49)
[2019-06-05] MEDS ORDERED: LIDOCAINE 2% MPF 5 ML VIAL ONE (15:49)
--- NOTE | 2019-06-05 16:05 | P.PN ---
Subjective Date of Service: 06/05/19 Chief Complaint: Abdominal pain Subjective: No new changes Patient still complaining of right upper quadrant pain. Right upper quadrant sonogram confirms cholelithiasis. He denies any nausea. No vomiting. He also reports no bowel movement over the past 3 days. Review of Systems 10-point ROS is otherwise unremarkable Physical Examination - Vital Signs Temperature: 99 F Blood Pressure: 132/58 Pulse: 66 Respirations: 18 Pulse Ox (%): 87 - Physical Exam General: Alert, In no apparent distress, Oriented x3 HEENT: Normocephalic, Mucous membr. moist/pink Neck: Supple, JVD not distended Respiratory: Clear to auscultation bilaterally, Normal air movement Cardiovascular: No edema, Normal S1 S2, Irregular heart rate/rhythm Gastrointestinal: Normal bowel sounds, No masses, Tenderness (Right upper and lower quadrants.) Musculoskeletal: No clubbing, No swelling Integumentary: No rashes Neurological: Normal strength at 5/5 x4 extr, Cranial nerves 3-12 intact, Normal affect - Studies Laboratory Data (last 24 hrs) 06/05/19 03:50: PT 42.0 H, INR 3.74 06/05/19 03:50: WBC 20.5 H* D, Hgb 12.7 L, Hct 35.3 L, Plt Count 301 06/05/19 03:50: Sodium 128 L, Potassium 4.6, BUN 24 H, Creatinine 1.39 H, Glucose 127 H, Magnesium 2.1, Total Bilirubin 1.0, AST 42 H, ALT 24, Alkaline Phosphatase 58, Lipase 40 L Assessment And Plan - Current Problems (Diagnosis) (1) Cholecystitis Current Visit: Yes Status: Acute (2) Leukocytosis Current Visit: Yes Status: Acute (3) Colitis Current Visit: Yes Status: Acute (4) History of atrial fibrillation Current Visit: Yes Status: Acute (5) History of hypertension Current Visit: Yes Status: Acute - Plan Seen by general surgery-Dr. Sargent. Patient is planned for a lap cholecystectomy. Continue antibiotics given leukocytosis. IV hydration. Cardiology consult for preop clearance.
[2019-06-05] MEDS ORDERED: EPHEDRINE SULF 50 MG/ML VIAL ONE (16:12)
[2019-06-05] MEDS ORDERED: Ringers Lactate 1,000 ML IV ONE (17:21)
[2019-06-05] MEDS: MORPHINE 4 MG/ML SYR ONE ×2 (17:54→18:02)
[2019-06-05] MEDS ORDERED: ONDANSETRON 4 MG/2 ML VIAL ONE (17:56)
[2019-06-05] MEDS: HYDROMORPHONE HCL 1 MG/ML INJ ONE ×2 (18:09→18:15)
[2019-06-06] MEDS: METRONIDAZOLE 500mg IVPB 500 MG/100 ML BAG IV SCH ×5 (00:26→23:32)
[2019-06-06] MEDS: Levofloxacin500mg IV 500 MG/100 ML BAG IV SCH (03:30)
[2019-06-06] MEDS: NA CHLORIDE 0.9% 1,000 ML IV SCH ×3 (03:30→17:24)
[2019-06-06 05:59] LABS: Absolute Lymphocytes (CBC) 0.5 K/uL (0.7-4.9); Basophils % 0.1 % (0-1.3); Hematocrit 32.2 % (39.6-49.0); Lymphocytes % 2.6 % (15.3-44.8); MPV 7.3 fL (7.6-11.3); RBC Red Blood Cell Count 3.37 M/uL (4.33-5.43)
[2019-06-06 06:22] LABS: Albumin 2.5 g/dL (3.4-5.0); Bilirubin Total 0.4 mg/dL (0.2-1.0); Potassium 4.4 mmol/L (3.5-5.1); Protein, Total 6.6 g/dL (6.4-8.2)
--- NOTE | 2019-06-06 13:29 | RAD REPORT ---
EXAM DESCRIPTION: CT Angiography Chest, Abdomen and Pelvis With Intravenous Contrast CLINICAL HISTORY: The patient is 88 years old and is Male; Abdominal distention;Dyspnea;PE TECHNIQUE: Axial computed tomographic angiography images of the chest, abdomen and pelvis with intra venous contrast. Sagittal and coronal reformatted images were created and reviewed. This CT exam was performed using one or more of the following dose reduction techniques: automated exposure cont rol, adjustment of the mA and/or kV according to patient size, and/or use of iterative reconstruction technique. MIP reconstructed images were created and reviewed. COMPARISON: No relevant prior studies available. FINDINGS: VASCULATURE: AORTA: No acute findings. No aortic aneurysm. No dissection. PULMONARY ARTERIES: Atherosclerosis of the aorta is present. There are no obvious filling defect s identified within the pulmonary arteries to suggest pulmonary embolism. GREAT VESSELS OF AORTIC ARCH: No acute findings. No dissection. No arterial occlusion or sig nificant stenosis. CELIAC TRUNK AND MESENTERIC ARTERIES: No acute findings. No occlusion or significant stenosis. RENAL ARTERIES: No acute findings. No occlusion or significant stenosis. ILIAC ARTERIES: No acute findings. No occlusion or significant stenosis. CHEST: LUNGS: Minimal dependent densities in the lung bases are present. PLEURAL SPACE: Unremarkable. No significant effusion. No pneumothorax. HEART: Unremarkable. No cardiomegaly. No significant pericardial effusion. ABDOMEN: LIVER: There is a diffuse decrease in hepatic parenchymal density, consistent with fatty infiltr ation. GALLBLADDER AND BILE DUCTS: The gallbladder is significantly distended punctate calcified gallst ones are present. Surrounding fluid and inflammation is noted. No ductal dilation. PANCREAS: The pancreas is atrophic. No ductal dilation. SPLEEN: Unremarkable. No splenomegaly. ADRENALS: Unremarkable. No mass. KIDNEYS AND URETERS: The kidneys enhance symmetrically. Bilateral renal cysts are present the la rgest of which measures 1.8 cm. No follow-up imaging is recommended. No hydronephrosis. No solid mass. STOMACH AND BOWEL: The stomach is decompressed. The small bowel is is normal in caliber. A duode nal diverticulum is present without surrounding inflammation. A large amount of stool is present with in the right colon. The remainder of the colon is normal in caliber. There is no mucosal thickening o r evidence of bowel obstruction. PELVIS: APPENDIX: No findings to suggest acute appendicitis. BLADDER: The bladder is well distended. REPRODUCTIVE: Unremarkable as visualized. CHEST, ABDOMEN and PELVIS: INTRAPERITONEAL SPACE: Unremarkable. No significant fluid collection. No free air. BONES/JOINTS: Multilevel degenerative change of the spine is present. No acute fracture. No dislocation. SOFT TISSUES: Unremarkable. LYMPH NODES: Unremarkable. No enlarged lymph nodes. IMPRESSION: 1. No evidence of pulmonary embolism. 2. No evidence of aortic dissection. 3. Cholelithiasis with findings concerning for acute cholecystitis. Electronically signed by: Eliz Lee MD 06/05/2019 5:17 AM CDT Due to temporary technical issues with the PACS/Fluency reporting system, reports are being signed by the in house radiologist as a courtesy to ensure prompt reporting. The interpreting radiologist is f ully responsible for the content of the report.
--- NOTE | 2019-06-06 14:17 | P.OP ---
Preoperative diagnosis: Cholecystitis with cholelithiasis Postoperative diagnosis: Gangrenous cholecystitis with cholelithiasis Primary procedure: Laparoscopic cholecystectomy Secondary procedure: Cholangiogram Anesthesia: General Estimated blood loss: Less than 20 cc Specimen: 1 gallbladder and common Operative Technique: The patient brought to the operating room and placed supine on the table. After induction of adequate general endotracheal anesthesia, the area of the abdomen was prepped with a DuraPrep solution, and he was draped in usual aseptic manner. A subumbilical incision was made. This brought through the skin and subcutaneous tissue. The abdominal cavity was entered. A pneumoperitoneum was created to approximately 12 mm mercury. 2 5 mm trocars were now placed in the right lateral side of the abdomen and 1 in the upper midline. We could visualize the peritoneal cavity. We could see an intense inflammatory process in the right upper quadrant. The omentum was markedly adherent to the inferior edge of the right lobe of the liver. This was gently taken down using blunt sharp dissection. We found a markedly swollen and tense gallbladder. Its contents were aspirated using the aspirating needle. The fundus a grasper was now placed on the fundus of the gallbladder. Applying will gentle traction we were able to expose its entirety. It was noted be swollen red with there is patchy gangrene. Around Austyn's pouch. Once again there was intense phlegm entry process with the omentum adhered this area. It was gently dissected away to expose the cystic duct and artery. A clip was placed between the gallbladder and the cystic duct. An opening was made into the cystic duct through which we obtained a cholangiogram. The films were somewhat suboptimal due to the fact we had a tough time advancing the catheter in had the hole in position. However on fluoroscopy we verified that we were in the cystic duct and there was flow contrast into the duodenum. The catheter was removed and the distal portion of the cystic duct was then clipped. The cystic artery was divided after clipping it as well. The gallbladder was now dissected free from the liver bed. The posterior wall was markedly edematous. The wall of the gallbladder itself was markedly thin and there is in some areas almost necrotic for the full thickness. The specimen was finally detached, placed in into an Endo-Catch, and brought out through the umbilical trocar site. At this point the abdomen is inspected to ensure adequate hemostasis. The liver bed was raw but there was no active bleeding sites from it. The patient has been on Xarelto so I placed a Rob-Murguia drain in this area and brought out through a separate stab wound incision At site was approximated. The pneumoperitoneum was now collapsed, the trocars removed, and colt applied to the skin. We did procedure he was in a stable condition when sent to the recovery room. Needle sponge instrument count were correct. Drain(s): RUTHIE drain Transferred to: Recovery Room Condition: Good
--- NOTE | 2019-06-06 16:52 | P.PN ---
Subjective Date of Service: 06/06/19 Chief Complaint: Abdominal pain Status post laparoscopically cholecystectomy. Patient noted to have gangrenous gallbladder. He reports pain only with activity. Had a small bowel movement this morning. He states that he has been passing gas. No fever recorded. Review of Systems 10-point ROS is otherwise unremarkable Physical Examination - Vital Signs Temperature: 96.9 F Blood Pressure: 137/62 Pulse: 65 Respirations: 18 Pulse Ox (%): 96 - Physical Exam General: Alert, In no apparent distress, Oriented x3 HEENT: Normocephalic, Mucous membr. moist/pink Neck: Supple, JVD not distended Respiratory: Clear to auscultation bilaterally, Normal air movement Cardiovascular: No edema, Regular rate/rhythm, Normal S1 S2 Gastrointestinal: Normal bowel sounds, Soft and benign Musculoskeletal: No swelling, No erythema Integumentary: No rashes Neurological: Normal strength at 5/5 x4 extr Assessment And Plan - Current Problems (Diagnosis) (1) Cholecystitis Current Visit: Yes Status: Acute (2) Leukocytosis Current Visit: Yes Status: Acute (3) Colitis Current Visit: Yes Status: Acute (4) History of atrial fibrillation Current Visit: Yes Status: Acute (5) History of hypertension Current Visit: Yes Status: Acute - Plan Status post laparoscopic cholecystectomy. Patient has significant leukocytosis though this is improving. Continue IV antibiotics and monitor WBC for improved Continue IV hydration. Increase activity as tolerated. Dr. Sargent is following.
--- NOTE | 2019-06-06 17:52 | PN ---
Date of Progress Note: 06/06/2019 History Of Present Illness: Mr. Pickard was admitted by Dr. Granado on 06/05/2019. He was seen for c ardiac clearance because of history of atrial fibrillation that has been controlled on Multaq. He ludwig d held the Xarelto for approximately 36 hours. Prior to surgery yesterday, he was found to have dinorah re cholelithiasis, cholecystitis, early gangrene. He is status post laparoscopic cholecystectomy. O vernight, he did well. He remained in sinus rhythm. No congestive heart failure. No clinical evide nce of coronary artery disease. He denied any chest pain, shortness of breath, pedal edema, palpitat ion, or syncope. I would resume the Xarelto as soon as Dr. Sargent is comfortable with that. We cade l follow him as needed. LUNA/FERNANDEZ Voice ID: [id number] Report ID: [id number]
--- NOTE | 2019-06-06 17:52 | CON ---
Date of Consultation: 06/05/2019 Reason For Consultation: Cardiac clearance for cholecystectomy. History Of Present Illness: Mr. Pickard is an 88-year-old white male. He was admitted by Dr. Granado on 06/05/2019. Dr. Sargent saw him for abdominal discomfort, abnormal ultrasound of the gallbladder , cholelithiasis. There is a plan for laparoscopic cholecystectomy and cholangiogram today. We were asked to clear him for surgery. He has chronic atrial fibrillation that is well controlled on Multa q and Xarelto. He has a normal rhythm. He has hypertension, controlled on ramipril. Has had echoes in the past in the office that were normal. Has not had any stress test for many years. He denied any cardiac symptoms. Occasionally, his blood pressure gets elevated, especially recently, probably because of his gallbladder disease and discomfort. He denied PND, orthopnea, pedal edema, palpitatio ns, or syncope. Past Medical History: As stated earlier. Allergies: PENICILLIN. Review of Systems: Negative. Social History: Negative. Medications: Multaq, Xarelto, and ramipril. The last dose of Xarelto was on 06/04/2019. Physical Examination: Vital Signs: Stable. He was afebrile. HEENT: Negative. Neck: Supple. No bruit. Chest: Clear. Cardiac: Regular rhythm and rate. No murmurs, gallops, or rubs. Abdomen: Tender, not distended. No hepatosplenomegaly. Extremities: No clubbing, cyanosis, or edema. Diagnostic Data: Chest x-ray was negative. EKG shows sinus rhythm with PAC. Creatinine 1.39. His white count was 20,000. Troponin was 0.22. BNP was 1257. Impression And Plan: 1.The patient with history of atrial fibrillation that is well controlled, in normal rhythm on Multa q and Xarelto. His last Xarelto dose was on 06/04/2019. He has had previous echos in the past that were normal. His EKG right now is normal. He has no cardiac symptoms. No clinical evidence of luís nary artery disease or congestive heart failure and I think he is at low risk for perioperative morta lity. 2.Hypertension, well controlled. 3.Renal insufficiency, stage 3. 4.Elevated white count, troponin, and BNP, probably secondary to cholelithiasis and cholecystitis. We will continue to monitor that. I do not think he needs any cardiac workup at this point. We will follow him postoperatively. LUNA/FERNANDEZ Voice ID: [id number] Report ID: [id number]
--- NOTE | 2019-06-07 00:58 | CON ---
Date of Consultation: 06/06/2019 Reason For Consultation: Cholecystitis and cholelithiasis, abdominal pain, abnormal CT and ultrasoun d. History Of Present Illness: The patient is an 88-year-old white male with history of atrial fibrilla tion, hypertension. Patient presented to hospital with abdominal pain. Patient found to have cholel ithiasis and cholecystitis with no elevation in his AST as well. Patient was taken to the operating room by Dr. Sargent with gallbladder removal performed as well. Patient has midepigastric right uppe r quadrant pain that seems to have largely resolved after the surgery and some moderate postop pain n ow. Past Medical History: Significant for hypertension, atrial fibrillation. Social History: No tobacco or alcohol or drugs. Allergies: PER CHART REVIEW, ALLERGIES TO PENICILLIN. Medications At Home: Include Xarelto, Ramipril, and Multaq. Last dose of Xarelto was 06/04/2019. Review of Systems: Patient has midepigastric right upper quadrant pain, now resolved after surgery and postop pain now. He denies any nausea, vomiting, fevers, chills, night sweats, heat or cold intolerance, chest pain, shortness of breath, seizure, syncope, lower extremity edema, muscle aches, joint aches, backaches, m kristian, hematochezia, hematemesis, coffee-grounds emesis, hematuria, dysuria, polydipsia, depression, anxiety. Physical Examination: General: The patient is an elderly male, lying in bed, in no acute distress. Vital Signs: He is 5 feet 11 inches, 209 pounds, BMI of 27 kg/m2. HEENT: Normocephalic, atraumatic. Anicteric. Pupils equal, round, and reactive to light. Extraocu lar movements intact. Oropharynx clear. Neck: Supple. No masses. Respirations: Clear to auscultation bilaterally. Cardiac: Regular rhythm. No gallops. Abdomen: Soft. Positive bowel sounds. Slightly distended though protuberant abdomen with pain on p alpation limiting some of the exam with postop pain. Extremities: No clubbing, cyanosis, or edema. 2+ pulses. Neuro: Alert and oriented x3. Grossly nonfocal. 5/5 motor strength. Sensation intact to light jose f ch. Laboratory Data: Patient had a white count on admission of 20.5 and today of 18.9, hemoglobin 11.3, hematocrit 32.2, MCV 94, platelet count 228. Polys of 95%, lymphocytes 3%, monocytes 2%. PT of 42.0 , INR 3.74. Sodium 133 up from 128 yesterday, potassium 4.4, chloride 100, bicarb 25, BUN 22, creati nine of 1.1, glucose 166, calcium 8.3, total bilirubin 0.4, AST of 48, ALT 31, alkaline phosphatase 5 7. Rapid troponin I high at 0.22. B-type natriuretic peptide elevated at 1257. Total protein 6.6, albumin 2.5. Lipase normal at [address] dissection protocol revealed cholelithiasis with fin dings concerning for acute cholecystitis. Ultrasound of the abdomen once again revealed cholelithias is and cholecystitis with gallbladder wall thickening and a small amount of pericholecystic fluid. Impression: 1.Cholecystitis with cholelithiasis. A CT of the abdomen and pelvis and ultrasound of abdomen revea led cholelithiasis and cholecystitis. The patient had midepigastric right upper quadrant pain reliev ed at the surgery. Laparoscopic cholecystectomy revealing gangrenous gallbladder as per pathology re port. 2.AST elevated 40 to 48. Normal ALT, total bilirubin, alkaline phosphatase, and lipase. Recommendations: 1.Laparoscopic cholecystectomy as per Surgery. 2.Continue IV fluids, IV antibiotics, elevated white count, sepsis noted. 3.Diet as per Surgery. 4.P.r.n. pain medications and antiemetics. POOJA/FERNANDEZ Voice ID: [id number] Report ID: [id number]
[2019-06-07] MEDS: NA CHLORIDE 0.9% 1,000 ML IV SCH (04:11)
[2019-06-07] MEDS: Levofloxacin500mg IV 500 MG/100 ML BAG IV SCH (04:12)
[2019-06-07] MEDS: METRONIDAZOLE 500mg IVPB 500 MG/100 ML BAG IV SCH ×4 (05:31→23:43)
[2019-06-07 06:29] LABS: Absolute Lymphocytes (CBC) 0.5 K/uL (0.7-4.9); Basophils % 0.2 % (0-1.3); Hematocrit 31.7 % (39.6-49.0); Lymphocytes % 2.8 % (15.3-44.8); MPV 7.6 fL (7.6-11.3); RBC Red Blood Cell Count 3.32 M/uL (4.33-5.43)
[2019-06-07 06:48] LABS: Potassium 4.4 mmol/L (3.5-5.1)
[2019-06-07] MEDS: DRONEDARONE 400 MG TAB PO SCH ×2 (08:14→16:31)
[2019-06-07] MEDS: RAMIPRIL 5 MG CAP PO SCH ×2 (08:30→20:21)
[2019-06-07] MEDS ORDERED: DRONEDARONE 400 MG TAB PO SCH (09:00)
--- NOTE | 2019-06-07 13:34 | P.PN ---
Subjective Date of Service: 06/07/19 Chief Complaint: Abdominal pain Status post laparoscopically cholecystectomy. Patient reports pain only with activity. He has been ambulating to and from bathroom. He states that he has been passing gas. Leukocytosis is improving only slowly. Review of Systems 10-point ROS is otherwise unremarkable Physical Examination - Vital Signs Temperature: 96.9 F Blood Pressure: 161/76 Pulse: 64 Respirations: 18 Pulse Ox (%): 96 - Physical Exam General: In no apparent distress, Oriented x3 HEENT: Mucous membr. moist/pink Neck: Supple, JVD not distended Respiratory: Clear to auscultation bilaterally, Normal air movement Cardiovascular: No edema, Normal S1 S2, Irregular heart rate/rhythm Gastrointestinal: Normal bowel sounds, Soft and benign, Non-distended Musculoskeletal: No swelling, No erythema Integumentary: No rashes Neurological: Normal strength at 5/5 x4 extr Assessment And Plan - Current Problems (Diagnosis) (1) Cholecystitis Current Visit: Yes Status: Acute (2) Leukocytosis Current Visit: Yes Status: Acute (3) History of atrial fibrillation Current Visit: Yes Status: Acute (4) History of hypertension Current Visit: Yes Status: Acute - Plan Status post laparoscopic cholecystectomy. Leukocytosis is improving only slowly Continue IV antibiotics and monitor WBC. Discharge after leukocytosis has significantly improved given gangrenous gallbladder. Patient has good oral intake. Discontinue IV fluid. Increase activity as tolerated. Advanced diet as tolerated. Xarelto resumed. Ramipril also resumed for hypertension General surgery to follow.
--- NOTE | 2019-06-07 15:37 | PN ---
Covering for Dr. Ellis. Subjective: He had a cholecystectomy done for gangrenous cholecystitis with cholelithiasis yesterday . He still has leukocytosis and I was asked to follow up this patient. Objective: General: He is awake, alert, hungry and does not like the clear liquids. He wants regul ar food. Vital Signs: Stable. He is afebrile. Abdomen: Soft, slightly distended, but no tenderness, no rebound, no rigidity, no guarding Laboratory Data: His white count is down from 20.5 to 18.6 with a left shift still present. Assessment: Status post laparoscopic appendectomy. Recommendations: We will go and advance his diet. Continue him on IV antibiotics. Check his white count tomorrow. Hopefully, in a day or 2, he can be discharged home on oral antibiotics. GREGORY/FERNANDEZ Voice ID: [id number] Report ID: [id number]
[2019-06-07] MEDS: RIVAROXABAN 20 MG TABLET PO SCH ×2 (16:32→18:03)
[2019-06-07] MEDS: ONDANSETRON 4 MG/2 ML VIAL IV PRN ×2 (16:35→22:14)
[2019-06-07] MEDS ORDERED: AZTREONAM 1 GM/VIAL IV SCH (17:00)
--- NOTE | 2019-06-07 17:07 | P.PN ---
Subjective Date of Service: 06/07/19 Chief Complaint: Abdominal pain, cholecystitis Subjective: New changes (S/p lap leroy 2 days ago. Today with AMS, feels like he is falling in the bed.) Physical Examination - Vital Signs Temperature: 96.9 F Blood Pressure: 161/76 Pulse: 64 Respirations: 18 Pulse Ox (%): 96 - Physical Exam General: Alert, Cooperative, Mild distress (Feels like he is falling. ) HEENT: Atraumatic, Normocephalic, PERRLA, EOMI Neck: Supple Respiratory: Diminished Cardiovascular: Regular rate/rhythm Gastrointestinal: No rebound, No guarding, Tenderness (Improved, post op pain) Neurological: Other (decreased energy, speech, though still coherent. Feels like he is falling) Assessment And Plan - Current Problems (Diagnosis) (1) Cholelithiasis Current Visit: Yes Status: Acute (2) Sepsis Current Visit: Yes Status: Acute (3) Abdominal pain Current Visit: Yes Status: Acute (4) Cholecystitis Current Visit: Yes Status: Acute (5) History of atrial fibrillation Current Visit: Yes Status: Acute (6) History of hypertension Current Visit: Yes Status: Acute (7) Altered mental status Current Visit: Yes Status: Acute - Plan REC:1) agree with MRI stroke protocol or CT brain angiogram with new AMS 2) neurology consultation 3) consider transfer to acute CVA center if new CVA with AMS
--- NOTE | 2019-06-07 17:34 | RAD REPORT ---
EXAM DESCRIPTION: Sheri Single View06/07/2019 5:13 pm CLINICAL HISTORY: Leukocytosis COMPARISON: none FINDINGS: Questionable opacity behind the left side of the heart. Right lung appears clear. Heart is upper limits normal size. Aorta is tortuous/ectatic IMPRESSION: Questionable opacity behind the left side of the heart. PA and lateral chest series rec ommended
--- NOTE | 2019-06-07 17:37 | RAD REPORT ---
EXAM DESCRIPTION: CT - Head Brain Wo Cont - 06/07/2019 5:25 pm CLINICAL HISTORY: Alteration of awareness/confusion COMPARISON: None TECHNIQUE: Computed axial tomography of the head was obtained. IV contrast was not requested. All CT scans are performed using dose optimization technique as appropriate and may include automated exposure control or mA/KV adjustment according to patient size. FINDINGS: An intracranial bleed is not seen . The ventricles are normal in caliber. No extra-axial fluid collection is noted. Mild to moderate low-density areas within periventricular, deep and subcortical white matter likely r epresent ischemic changes secondary to small vessel disease. Fluid within the sinuses/ mastoids is not seen. IMPRESSION: No acute intracranial abnormality is seen. If patient's symptoms persist MRI of the bra in would be recommended.
--- NOTE | 2019-06-07 18:45 | P.PN ---
Date of Service: 06/07/19 I was called to evaluate patient because family reported patient was confused. Patient seen and evaluated. He started vomiting during my assessment. Neurologic examination was performed. Patient oriented to person, place and time. No problem with speech. Denies any visual change. No facial deviation. Power in all limbs normal and equal on both sides. [id number] test: No past pointing. His xarelto was stopped briefly before surgery and resumed the night after surgery. CT head performed reported no acute intracranial changes. It did report small- vessel ischemic changes. MRI of the brain to further assess for acute CVA symptoms persist. Patient still has significant leukocytosis. He has been afebrile. And there is a concern for sepsis. Patient evaluated by Dr. Krause who suspects acute CVA. Family is very concerned about patient symptoms recurring which could be due to stroke and requesting patient to be transferred to a stroke center. Transfer to stroke center initiated per their request.
[2019-06-07] MEDS: Meropenem 1,000 MG in NA CHLORIDE 0.9% 100 ML IV SCH (18:53)
[2019-06-07 18:57] LABS: Urine Appearance CLEAR; Urine Bilirubin NEGATIVE (NEG); Urine Blood NEGATIVE (NEG); Urine Color YELLOW; Urine Glucose NEGATIVE (NEG); Urine Protein TRACE (NEG); Urine pH 6.5 (5.0-7.0)
[2019-06-07 19:30] LABS: Urine Bacteria NONE SEEN /HPF (NONE SEEN); Urine Culture Reflex Order NOT NEEDED; Urine RBC <5 /HPF (NONE SEEN)
[2019-06-08] MEDS ORDERED: METOPROLOL TARTRATE 5 MG/5 ML INJ IV STA (00:04)
[2019-06-08] MEDS: Meropenem 1,000 MG in NA CHLORIDE 0.9% 100 ML IV SCH ×3 (00:15→16:00)
[2019-06-08] MEDS: NA CHLORIDE 0.9% 1,000 ML IV SCH ×2 (00:15→12:00)
[2019-06-08] MEDS: TEMAZEPAM 15 MG CAP PO PRN ×2 (00:59→21:27)
[2019-06-08] MEDS ORDERED: METOCLOPRAMIDE 10 MG/2mL INJ IV SCH (01:00)
[2019-06-08 01:49] LABS: Absolute Lymphocytes (CBC) 0.8 K/uL (0.7-4.9); Basophils % 0.1 % (0-1.3); Hematocrit 34.8 % (39.6-49.0); Lymphocytes % 6.4 % (15.3-44.8); MPV 7.5 fL (7.6-11.3); RBC Red Blood Cell Count 3.62 M/uL (4.33-5.43)
[2019-06-08 01:51] LABS: Protime INR 1.97
[2019-06-08 02:42] LABS: Albumin 2.5 g/dL (3.4-5.0); Bilirubin Total 0.7 mg/dL (0.2-1.0); Phosphorus 1.7 mg/dL (2.5-4.9); Potassium 3.8 mmol/L (3.5-5.1); Protein, Total 6.7 g/dL (6.4-8.2); Thyroid Stimulating Hormone 1.73 uIU/mL (0.360-3.740); Troponin I 0.04 ng/mL (0.0-0.045)
[2019-06-08] MEDS: METRONIDAZOLE 500mg IVPB 500 MG/100 ML BAG IV SCH ×4 (04:59→23:31)
[2019-06-08] MEDS: RAMIPRIL 5 MG CAP PO SCH ×2 (08:58→21:27)
[2019-06-08] MEDS: DRONEDARONE 400 MG TAB PO SCH ×2 (08:59→16:00)
--- NOTE | 2019-06-08 11:26 | P.PN ---
Subjective Date of Service: 06/08/19 Chief Complaint: Abdominal pain, cholecystitis, acute AMS with feeling like falling Subjective: No new changes (Sleepy, not as responsive this morning. Transfer to [facility] pending[facility] Transfer to [facility] denied for unclear reasons. CT head without contrast yesterday showed "no acute findings" though some low density areas noted.) Review of Systems 10-point ROS is otherwise unremarkable General: Weakness, Malaise Neurological: Weakness, Change in Speech (not as talkative as yesterday and sleepy) Physical Examination - Vital Signs Temperature: 98.1 F Blood Pressure: 174/76 Pulse: 67 Respirations: 18 Pulse Ox (%): 95 - Physical Exam General: Alert (though sleepy), Cooperative HEENT: Atraumatic, Normocephalic Neck: Supple Respiratory: Normal air movement Cardiovascular: Normal pulses Gastrointestinal: Soft and benign, No tenderness, No rebound, No guarding Assessment And Plan - Current Problems (Diagnosis) (1) Cholelithiasis Current Visit: Yes Status: Acute (2) Sepsis Current Visit: Yes Status: Acute (3) Abdominal pain Current Visit: Yes Status: Acute (4) Cholecystitis Current Visit: Yes Status: Acute (5) History of atrial fibrillation Current Visit: Yes Status: Acute (6) History of hypertension Current Visit: Yes Status: Acute (7) Altered mental status Current Visit: Yes Status: Acute Comment: acute AMS, noting that he felt like he was falling while lying in bed (lasting few hours), then acutely resolved, and now sleepy less talkative today. 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
--- NOTE | 2019-06-08 12:08 | RAD REPORT ---
EXAM DESCRIPTION: RAD - Abdomen W Erect - 06/08/2019 8:32 am CLINICAL HISTORY: nausea and vomiting Pain COMPARISON: Angio Aorta For Dissection dated 06/05/2019 FINDINGS: Mild nonspecific distention of the colon and small bowel suspected. No suspicious calcific ations. No significant bony findings. IMPRESSION: A mild ileus is suspected.
--- NOTE | 2019-06-08 14:48 | PN ---
Date of Progress Note: 06/08/2019 Subjective: The patient apparently had episode of confusion. Yesterday, CT of head did not reveal a ny acute findings. However, there was concern about a possibility of a stroke, but he improved and t alejo, he is confused again. There was an initiation of a transfer what the nursing staff told me. Kirk lira did tolerate his diet yesterday however. Objective: Vital Signs: Stable. He is afebrile. Abdomen: Soft, nondistended, nontender. Positive bowel sounds. Laboratory Data: His white count is down to 13.3. Assessment: Status post laparoscopic cholecystectomy with mental status changes. Recommendations: From a Surgical standpoint, his diet can be advanced. Continue on the IV antibioti cs while his medical issues are being addressed. /MODL Voice ID: [id number] Report ID: [id number]
[2019-06-08] MEDS: RIVAROXABAN 20 MG TABLET PO SCH (16:00)
[2019-06-08] MEDS ORDERED: ATORVASTATIN 40 MG TAB PO SCH (21:00)
--- NOTE | 2019-06-08 21:06 | PN ---
Date of Progress Note: 06/07/2019 The patient was being seen on 06/07/2019 in followup. He was seen on 06/06/2019 for cardiac clearanc e for cholelithiasis and cholecystitis. He has a history of atrial fibrillation, previous normal ech oes and cardiac workup in the past. No cardiac symptoms. He had hypertension that was well controll ed. Renal insufficiency stage 3. He was on Xarelto. He was in normal sinus rhythm on Multaq. He w as cleared for surgery. He underwent surgery on 06/06/2019 for his cholecystitis. Surgery was done with laparoscopy. Leukocytosis was improving. The patient was doing well. We will sign off his shoaib e. He will see us in the office in the next 2 weeks. LUNA/FERNANDEZ Voice ID: [id number] Report ID: [id number]
[2019-06-08 23:49] VITALS: O2SAT 94
[2019-06-09] MEDS: Meropenem 1,000 MG in NA CHLORIDE 0.9% 100 ML IV SCH ×2 (00:21→08:44)
--- NOTE | 2019-06-09 02:53 | P.PN ---
Date of Service: 06/08/19 Subjective Status post laparoscopically cholecystectomy; POD#3; Patient is resting this morning. Patient had not slept in a couple of days. There was concern for a CVA; CT was negative. MRI is pending. Continue with physical therapy evaluation. Review of Systems 10-point ROS is otherwise unremarkable Physical Examination - Vital Signs Reviewed - Physical Exam General: In no apparent distress, Oriented x2; was confused early mornings but now he is sleeping. Hopefully when he awakens he will repeat back to his normal baseline. Respiratory: Clear to auscultation bilaterally, Normal air movement Cardiovascular: No edema, Normal S1 S2, Irregular heart rate/rhythm Gastrointestinal: Normal bowel sounds, Soft and benign, Non-distended Neurological: Moves all extremities Assessment And Plan - Current Problems (Diagnosis) (1) Cholecystitis Current Visit: Yes Status: Acute (2) Leukocytosis Current Visit: Yes Status: Acute (3) History of atrial fibrillation Current Visit: Yes Status: Acute (4) History of hypertension Current Visit: Yes Status: Acute - Plan Status post laparoscopic cholecystectomy; POD#3. We can probably go ahead and discontinue IV antibiotics in a few days Continue to advance diet as tolerated. Increase activity with physical therapy Xarelto resumed. Ramipril also resumed for hypertension General surgery and Gastroenterology to follow. MRI is pending
[2019-06-09] MEDS: NA CHLORIDE 0.9% 1,000 ML IV SCH (03:38)
[2019-06-09] MEDS: METRONIDAZOLE 500mg IVPB 500 MG/100 ML BAG IV SCH (05:17)
[2019-06-09] MEDS: DRONEDARONE 400 MG TAB PO SCH (08:43)
[2019-06-09] MEDS: RAMIPRIL 5 MG CAP PO SCH (08:44)
--- NOTE | 2019-06-09 09:03 | RAD REPORT ---
EXAM DESCRIPTION: MRI - Brain W/Wo Cont - 06/09/2019 8:13 am CLINICAL HISTORY: CVA COMPARISON: June 07, [address] TECHNIQUE: Axial, sagittal, and coronal magnetic images of the brain were obtained. 20 cc MultiHance administered intravenously FINDINGS: Mild to moderate signal within periventricular, deep and subcortical white matter probably ischemic changes secondary to small vessel disease The ventricles are normal in caliber. Diffusion-weighted/ ADC mapping sequences do not demonstrate evidence of an acute infarction. No abnormal enhancement within the brain is seen. An extra-axial fluid collection is not noted. Fluid within the sinuses/mastoids is not seen IMPRESSION: No acute abnormality displayed
--- NOTE | 2019-06-09 09:08 | RAD REPORT ---
EXAM DESCRIPTION: MRI - MRA Head Wo Cont - 06/09/2019 8:13 am CLINICAL HISTORY: CVA COMPARISON: None. TECHNIQUE: Magnetic resonance angiogram was performed. 3D MIPS reconstruction performed FINDINGS: Examination is limited secondary to patient motion Portions of arteries are nondiagnostic secondary to artifact. No gross abnormality displayed of the anterior cerebral, middle cerebral, posterior cerebral, basilar and internal carotid arteries . IMPRESSION: Limited evaluation without visualization of a gross abnormality
--- NOTE | 2019-06-09 09:14 | RAD REPORT ---
EXAM DESCRIPTION: MRI - MRA Neck W/Wo Cont - 06/09/2019 8:13 am CLINICAL HISTORY: CVA COMPARISON: None. TECHNIQUE: Magnetic resonance angiogram of the neck was performed. 19 cc MultiHance was administered intravenously. 3D MIPS reconstruction performed FINDINGS: Short segment area of moderate narrowing involves the proximal basilar artery. Moderate plaque within the right carotid bulb. Mild to moderate plaque proximal left external carotid artery. Mild plaque within the common carotid and left internal carotid arteries. Left vertebral artery is little bit more dominant than the right. . 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 Mild 0-49% stenosis Moderate 50-69% stenosis Severe 70-99% stenosis
[2019-06-09 11:27] LABS: Absolute Lymphocytes (CBC) 0.8 K/uL (0.7-4.9); Basophils % 0.1 % (0-1.3); Hematocrit 33.5 % (39.6-49.0); Lymphocytes % 8.5 % (15.3-44.8); MPV 7.1 fL (7.6-11.3); RBC Red Blood Cell Count 3.49 M/uL (4.33-5.43)
[2019-06-09 11:42] LABS: Phosphorus 1.9 mg/dL (2.5-4.9); Potassium 3.7 mmol/L (3.5-5.1)
[2019-06-09 12:36] LABS: Blood Morphology Comment NOT SEEN (NOT SEEN); Platelet Estimate ADEQ; Urine White Blood Cell Casts OK
[2019-06-09 13:14] VITALS: BP 131/69; TEMP 97.1
--- NOTE | 2019-06-09 15:33 | P.DS ---
Admission Date: 06/05/19 Discharge Date: 06/09/19 Disposition: ROUTINE DISCHARGE Discharge Condition: FAIR Reason for Admission: Abdominal pain, cholecystitis, acute AMS with feeling like falling - Problems (1) Cholecystitis Status: Acute (2) History of atrial fibrillation Status: Acute (3) History of hypertension Status: Acute Brief History of Present Illness: Patient is an 88-year-old gentleman who came into the hospital with abdominal discomfort. Pain was mainly in the epigastric area. Patient was in the ER the day before with similar complaints. Symptoms have not been improving. Patient' s brought back into the ER for further evaluation. Patient had a CT aortic dissection which revealed cholelithiasis/colitis. Patient will be admitted to the hospital for further evaluation. Patient may have a small- bowel obstruction. Will get surgery and GI consultation. Hospital Course: Overall during the hospital stay patient remained stable Patient was initially admitted to the hospital for abdominal pain was found to have acute cholecystitis. The general surgery was consulted. Patient had a lap cholecystectomy done here in the hospital and did well overall postprocedure. After 24 hr of procedure patient started having altered mental status at that point patient had head CT done which was consistent with low- density signaling. At that time a decision was made to get an MRI done to rule out acute stroke. Patient had MRI done here in the hospital along with MRA which were both negative for any acute abnormality. Patient was able to ambulate tolerate diet and once cleared by general surgery. He was discharged home under stable condition. Vital Signs/Physical Exam: Temp Pulse Resp BP Pulse Ox 97.1 F 68 18 131/69 96 06/09/19 12:00 06/09/19 12:00 06/09/19 12:00 06/09/19 12:06/09/19 12:00 General: Alert, In no apparent distress HEENT: Atraumatic, PERRLA, EOMI Neck: Supple, JVD not distended Respiratory: Clear to auscultation bilaterally, Normal air movement Cardiovascular: Regular rate/rhythm, Normal S1 S2 Gastrointestinal: Normal bowel sounds, No tenderness Musculoskeletal: No tenderness Integumentary: No rashes Neurological: Normal speech, Normal tone, Normal affect Lymphatics: No axilla or inguinal lymphadenopathy Laboratory Data at Discharge: WBC 9.9 K/uL (4.3-10.9) D 06/09/19 10:59 Hgb 12.1 g/dL (13.6-17.9) L 06/09/19 10:59 Hct 33.5 % (39.6-49.0) L 06/09/19 10:59 Plt Count 351 K/uL (152-406) 06/09/19 10:59 PT 22.6 SECONDS (9.5-12.5) H 06/08/19 01:26 INR 1.97 06/08/19 01:26 APTT 31.2 SECONDS (24.3-36.9) 06/08/19 01:26 Sodium 140 mmol/L (136-145) 06/09/19 10:59 Potassium 3.7 mmol/L (3.5-5.1) 06/09/19 10:59 BUN 16 mg/dL (7-18) 06/09/19 10:59 Creatinine 0.90 mg/dL (0.55-1.3) 06/09/19 10:59 Glucose 149 mg/dL (74-106) H 06/09/19 10:59 Phosphorus 1.9 mg/dL (2.5-4.9) L 06/09/19 10:59 Magnesium 2.0 mg/dL (1.8-2.4) 06/09/19 10:59 Total Bilirubin 0.7 mg/dL (0.2-1.0) 06/08/19 01:26 AST 33 U/L (15-37) 06/08/19 01:26 ALT 35 U/L (12-78) 06/08/19 01:26 Alkaline Phosphatase 53 U/L (45-117) 06/08/19 01:26 Troponin I 0.04 ng/mL (0.0-0.045) 06/08/19 01:26 Lipase 73 U/L (73-393) 06/08/19 01:26 Home Medications: Dronedarone [Multaq*] 400 mg PO BID 06/05/19 Ramipril 5 mg PO BID 06/05/19 Rivaroxaban [Xarelto] 20 mg PO 1700 06/05/19 Ciprofloxacin HCl [Cipro 500 MG Tablet] 500 mg PO BID #14 tab 06/09/19 metroNIDAZOLE [Flagyl] 500 mg PO Q8H #21 tablet 06/09/19 New Medications: Ciprofloxacin HCl [Cipro 500 MG Tablet] 500 mg PO BID #14 tab metroNIDAZOLE [Flagyl] 500 mg PO Q8H #21 tablet Diet: Regular Activity: Ad candice Followup: Marc Sargent MD [ACTIVE - CAN ADMIT] - 1-2 Weeks (call to schedule an appointment) Rd Krause MD [ASSOCIATE-ACTIVE - CAN ADMIT] - 1-2 Weeks (call to schdule an appointment)
--- NOTE | 2019-06-17 18:29 | RAD REPORT ---
EXAM DESCRIPTION: RAD - Cholangiogram Oper-Xray Or - 06/11/2019 2:08 pm FINDINGS: There were 3 images submitted from fluoroscopic assisted intraoperative cholangiogram. Jessa luation is limited when only selected images are available. Fluoro time was 0.6 minutes.
== END 2019-06-09 14:38 | disposition home health service (06) | DRG 854 ==
LOC: ER 01:46 → 4TH 04:53
PROVIDERS: ADMIT Hospitalist; ATTEND Family Medicine
PROC: 0FT44ZZ Resection of Gallbladder, Percutaneous Endoscopic Approach (ICD-10-PCS; principal; 2019-06-06)
DX: A41.9 Sepsis, unspecified organism (principal); K80.00 Calculus of gallbladder with acute cholecystitis without obstruction; K82.A1 Gangrene of gallbladder in cholecystitis; K52.9 Noninfective gastroenteritis and colitis, unspecified; I48.91 Unspecified atrial fibrillation; I10 Essential (primary) hypertension; E11.9 Type 2 diabetes mellitus without complications
CPT/HCPCS: 36415; 70450; 70544; 70549; 70553; 71045; 71275; 74019; 74175; 74177; 74300; 76705; 80048; 80053; 80076; 81001; 82962; 83690; 83735; 83880; 84100; 84439; 84443; 84484; 85025; 85610; 85730; 87040; 88304; 93005; 96365; 96366; 96374; 96375; 97112; 97116; 97161; 99284; 99285; A9577; C9113; J0696; J1100; J1170; J2175; J2270; J2405; J2704; J2765; J3010; J7030; Q9967

== ENCOUNTER 2019-08-29 12:36 | Day surgery (SDC) | payer OTHER, BC ==
--- OUTSIDE RECORDS SUMMARY | 2019-08-29 12:40 | XMS REPORT ---
:1930 Author Organization [employer] Care Team Providers Name Role Phone Glendy Eugene Provider Role Unavailable Allergies, Adverse Reactions, Alerts Substance Reaction Event Type PCN rash & itching Drug Allergy Problems Problem Type Condition Code Onset Dates Condition Status Assessment Chronic atrial fibrillation I48.20 Active Assessment Establishing care with new doctor, Z76.89 Active encounter for Assessment Otalgia of right ear H92.01 Active Assessment Heart disease I51.9 Active Assessment Essential hypertension I10 Active Problem Gallstones K80.20 Active Problem Heart disease I51.9 Active Problem Essential hypertension I10 Active Problem Chronic atrial fibrillation I48.20 Active Problem Sinus problem J34.9 Active Problem High cholesterol E78.00 Active Medications Medication Code Code Instructions Start End Status Dosage System Date Date Multaq [facility] 16831573180 400 MG Orally Active 1 tablet Twice a day with meals Ramipril [facility] 77081525141 5 MG Orally Active 1 capsule twice a day Tobramycin-Dex [facility] 43943851895 0.3-0.1 % Aug 25, Active 3-4 drop amethasone topically twice 2019 into rt a day ear Xarelto [facility] 10172874165 20 MG Orally Active 1 tablet Once a day with food Results No Known Results Summary Purpose [employer] Submission
[2019-08-29] MEDS ORDERED: Ringers Lactate 1,000 ML IV ONE (13:00)
[2019-08-29] MEDS ORDERED: LIDOCAINE 1% MPF 30 ML VIAL ONE (14:56)
[2019-08-29] MEDS ORDERED: propofoL 200 MG/20 ML VIAL IV ONE (14:56)
[2019-08-29 16:38] VITALS: TEMP 98.6
[2019-08-29 16:39] VITALS: O2SAT 95
[2019-08-29 16:40] VITALS: BP 129/65
== END 2019-08-29 16:30 | disposition home or self-care (01) ==
LOC: OR 12:36
PROVIDERS: ATTEND Internal Medicine Gastroenterology
PROC: 0DJD8ZZ Inspection of Lower Intestinal Tract, Via Natural or Artificial Opening Endoscopic (ICD-10-PCS; principal; 2019-08-29 14:15)
DX: K92.1 Melena (principal); K64.8 Other hemorrhoids; I10 Essential (primary) hypertension; I48.91 Unspecified atrial fibrillation; E78.5 Hyperlipidemia, unspecified; I67.9 Cerebrovascular disease, unspecified; Z88.0 Allergy status to penicillin
CPT/HCPCS: 45378; J2704; J7120